=== PATIENT | female | born 1990 | race American Indian/Alaskan Native ===

== ENCOUNTER 2019-03-17 22:50 | Emergency (ER) | payer SELFPAY ==
[2019-03-18] MEDS ORDERED: IBUPROFEN 600 MG TAB PO ONE (01:21)
[2019-03-18] MEDS ORDERED: diphenhydrAMINE 25 MG CAP PO ONE (01:21)
[2019-03-18] MEDS ORDERED: predniSONE 20 MG TAB PO ONE (01:21)
--- NOTE | 2019-03-18 01:21 | Emergency Department Report ---
ED General Adult HPI - General Chief complaint: Sore Throat Stated complaint: EAR PAIN/SORE THROAT Source: patient Mode of arrival: Ambulatory Limitations: No Limitations - History of Present Illness Initial comments: Patient is a 12-year-old [place] female with no past medical history who presents to the ED with complaint of acute onset persistent severe sore throat with dysphagia and swollen tonsils for the last 3 days. Patient states that the last 12 hours she has not been able to swallow anything because of severe sore throat. Patient states that the pain radiates now to her left ear and neck. Patient denies fever, chills, nausea, vomiting, cough, nasal and sinus congestion, chest pain, shortness of breath, abdominal pain, syncope, dizziness or change in vision. MD Complaint: Sore throat, swollen tonsils -: Sudden, days(s) (3) Location: mouth Radiation: neck, other (left ear) Severity scale (0 -10): 7 Quality: aching, sharp Consistency: constant Improves with: none Worsens with: none Associated Symptoms: headaches, loss of appetite. denies: chest pain, cough, diaphoresis, fever/chills, malaise, nausea/vomiting, rash, seizure, shortness of breath, weakness Treatments Prior to Arrival: none - Related Data Previous Rx's Medication Instructions Recorded Last Taken Type Ibuprofen [Motrin] 800 mg PO Q8HR PRN #30 tablet 03/18/19 Unknown Rx Lidocaine Viscous 2% 10 ml PO Q6H PRN #120 ml 03/18/19 Unknown Rx Penicillin V Potassium 500 mg PO Q6H #40 tablet 03/18/19 Unknown Rx methylPREDNISolone [Medrol 4MG 4 mg PO DAILY #21 tab.ds.pk 03/18/19 Unknown Rx DOSEPAK (21 tabs)] Allergies Allergy/AdvReac Type Severity Reaction Status Date / Time orange Allergy Unknown Verified 03/17/19 22:54 ED Review of Systems ROS: Stated complaint: EAR PAIN/SORE THROAT Other details as noted in HPI Constitutional: denies: chills, fever Eyes: denies: eye pain, eye discharge, vision change ENT: ear pain (left), throat pain Respiratory: denies: cough, shortness of breath, wheezing Cardiovascular: denies: chest pain, palpitations Endocrine: no symptoms reported Gastrointestinal: denies: abdominal pain, nausea, diarrhea Genitourinary: denies: urgency, dysuria, discharge Musculoskeletal: denies: back pain, joint swelling, arthralgia Skin: denies: rash, lesions Neurological: headache. denies: weakness, paresthesias Psychiatric: denies: anxiety, depression Hematological/Lymphatic: denies: easy bleeding, easy bruising ED Past Medical Hx - Past Medical History Previous Medical History?: No - Surgical History Past Surgical History?: Yes Hx Appendectomy: Yes - Social History Smoking Status: Current Every Day Smoker Substance Use Type: None - Medications Home Medications: Home Medications Medication Instructions Recorded Confirmed Last Taken Type Ibuprofen [Motrin] 800 mg PO Q8HR PRN #30 tablet 03/18/19 Unknown Rx Lidocaine Viscous 2% 10 ml PO Q6H PRN #120 ml 03/18/19 Unknown Rx Penicillin V Potassium 500 mg PO Q6H #40 tablet 03/18/19 Unknown Rx methylPREDNISolone [Medrol 4MG 4 mg PO DAILY #21 tab.ds.pk 03/18/19 Unknown Rx DOSEPAK (21 tabs)] ED Physical Exam - General Limitations: No Limitations General appearance: alert, in no apparent distress - Head Head exam: Present: atraumatic, normocephalic, normal inspection - Eye Eye exam: Present: normal appearance, PERRL, EOMI Pupils: Present: normal accommodation - ENT ENT exam: Present: mucous membranes moist, TM's normal bilaterally, normal external ear exam, other (swollen, erythematous left tonsils with erythematous oropharynx.) - Neck Neck exam: Present: normal inspection, tenderness, full ROM, lymphadenopathy - Respiratory Respiratory exam: Present: normal lung sounds bilaterally. Absent: respiratory distress, wheezes, rhonchi, stridor, chest wall tenderness, accessory muscle use, prolonged expiratory - Cardiovascular Cardiovascular Exam: Present: regular rate, normal rhythm, normal heart sounds. Absent: systolic murmur, diastolic murmur, rubs, gallop - GI/Abdominal GI/Abdominal exam: Present: soft, normal bowel sounds. Absent: tenderness, guarding, rebound, hyperactive bowel sounds, hypoactive bowel sounds, organomegaly, bruit - Extremities Exam Extremities exam: Present: normal inspection, full ROM, normal capillary refill - Back Exam Back exam: Present: normal inspection, full ROM. Absent: tenderness, CVA t enderness (R), CVA tenderness (L), muscle spasm, paraspinal tenderness, vertebral tenderness - Neurological Exam Neurological exam: Present: alert, oriented X3, CN II-XII intact, normal gait, reflexes normal - Psychiatric Psychiatric exam: Present: normal affect, normal mood - Skin Skin exam: Present: warm, dry, intact, normal color. Absent: rash ED Course Vital Signs 03/17/19 22:57 Temperature 97.7 F Pulse Rate 68 Respiratory 16 Rate Blood Pressure 127/79 O2 Sat by Pulse 99 Oximetry - Reevaluation(s) Reevaluation #1: 03/18/19 01:29 This is a 29-year-old [place] female who presented to the ED with sore throat and swollen tonsils for 3 days. In the ED, patient is alert and oriented 3 and he is not in distress with normal vital signs. Patient was treated for pain in the ED and discharged home on medications and advised to follow-up with her primary care physician 7-10 days for reevaluation or return to the ED immediately if symptoms get worse. ED Medical Decision Making - Medical Decision Making 03/18/19 01:29 This is a 29-year-old [place] female who presented to the ED with sore throat and swollen tonsils for 3 days. In the ED, patient is alert and oriented 3 and he is not in distress with normal vital signs. Patient was treated for pain in the ED and discharged home on medications and advised to follow-up with her primary care physician 7-10 days for reevaluation or return to the ED immediately if symptoms get worse. - Differential Diagnosis acute tonsillitis; Acute pharyngitis; acute URI; Acute otitis media Critical care attestation.: If time is entered above; I have spent that time in minutes in the direct care of this critically ill patient, excluding procedure time. ED Disposition Clinical Impression: Acute bacterial tonsillitis Acute pharyngitis Qualifiers: Pharyngitis/tonsillitis etiology: unspecified etiology Qualified Code(s): J02.9 - Acute pharyngitis, unspecified Disposition: - TO HOME OR SELFCARE Is pt being admited?: No Does the pt Need Aspirin: No Condition: Stable Instructions: Pharyngitis (ED), Tonsillitis (ED) Additional Instructions: Take medication at home, drink plenty of fluids and follow-up with your primary care physician in 7-10 days for reevaluation. Return to the ED immediately if symptoms get worse. Prescriptions: Lidocaine Viscous 2% 10 ml PO Q6H PRN #120 ml PRN Reason: Pain , Severe (7-10) methylPREDNISolone [Medrol 4MG DOSEPAK (21 tabs)] 4 mg PO DAILY #21 tab.ds.pk Ibuprofen [Motrin] 800 mg PO Q8HR PRN #30 tablet PRN Reason: Pain , Severe (7-10) Penicillin V Potassium 500 mg PO Q6H #40 tablet Referrals: PRIMARY CARE, [Primary Care Provider] - 3-5 Days Time of Disposition: 01:18 Print Language: TANZANIAN
[2019-03-18] MEDS ORDERED: LIDOCAINE VISCOUS 2% 15 ML ORAL LIQD PO ONE (01:22)
[2019-03-18 02:08] VITALS: BP 139/83
== END 2019-03-18 01:55 | disposition home or self-care (01) ==
LOC: ED 22:50
DX: J03.90 Acute tonsillitis, unspecified (principal); F17.200 Nicotine dependence, unspecified, uncomplicated; Z90.49 Acquired absence of other specified parts of digestive tract; Z79.899 Other long term (current) drug therapy; Z91.018 Allergy to other foods
CPT/HCPCS: 99282; J7512